=== PATIENT | female | born 2000 | race Caucasian/White ===

== ENCOUNTER → 2025-05-17 06:49 | Day surgery (SDC) | payer MEDICAID, SELFPAY ==
[2025-05-15 13:20] VITALS: BMI 31.0
--- NOTE | 2025-05-16 07:24 | EXP.HP ---
History of Present Illness *Admission Date: 05/17/25 *History of present illness: Mrs. Kwan is a 25-year-old female who is here for diagnostic colonoscopy. The patient is having left-sided abdominal pain intermittently. Her CAT scan at [facility] was unremarkable. She does have a positive ASCA IgG antibody (34) and her p-ANCA was normal. She has never had a colonoscopy. She had previously been diagnosed with IBS constipation. The examination is deemed medically necessary for diagnostic colonoscopy. The patient has been seen, interviewed and examined prior to the procedure by both myself and the anesthesia provider. [facility] Disclaimer: The information contained in this section may have been updated after the patient was seen, as this information can be updated by other users. Medical History Acid reflux Surgical History Hx of section Hx of dilation and curettage Hx of laparoscopy H/O plastic surgery Social History Smoking Status: Never smoker alcohol intake: never substance use type: denies use current occupational status: unemployed Travel in the last 8 weeks?: None Have you lived/traveled outside [place] in past 30 days?: No Contact w/someone who lives/traveled outside [place] past 30 days?: No Exposure to someone with infectious disease in past 14 days?: No Do you have a fever (greater than 100.4 F or 38 C)?: No Have you tested positive for COVID-19?: No Exposed to someone with COVID-19 in past 14 days?: No Do you have a sore throat?: No Do you have a cough?: No Do you have any weakness?: No Are you experiencing any nausea/vomitting?: No Do you have any diarrhea?: No Are you experiencing any unusual bleeding?: No Do you have any muscle aches/pain?: No Do you have any abdominal pain?: No Are you experiencing loss of taste or smell?: No Review of Systems Review of Systems Review of systems (narrative): Negative *Cardiovascular Comments: Negative *Gastrointestinal Comments: Negative *Genitourinary Comments: Negative *Musculoskeletal Comments: Negative *Neurologic Comments: Negative Meds Home Medications and Allergies New Prescriptions to Start Prescriptions: Allergies Allergy/AdvReac Type Severity Reaction Status Date / Time amoxicillin Allergy Mild Anaphylaxis Verified 05/17/25 07:23 cefdinir Allergy Mild Anaphylaxis Verified 05/17/25 07:23 famotidine (From Pepcid) AdvReac Palpitation Verified 05/17/25 07:23 s Exam Data for Last 24 hours I & O for Last 24 hours: Intake & Output 05/13/25 05/14/25 05/15/25 05/16/25 23:59 23:59 23:59 23:59 Weight 181 lb *Routine HEENT Exam Head: Present normocephalic Eye: Present EOMI and PERRL ENT: Present mucous membranes moist *Routine Neck Exam Neck: Present supple *Routine Respiratory Exam Respiratory: Present CTA bilaterally *Routine Cardiovascular Exam Cardiovascular: Present RRR *Routine Abdominal Exam Abdominal: Present soft and normoactive bowel sounds; Absent tenderness *Routine Rectal Exam Rectal:: deferred *Routine Genitalia Exam Genitalia:: deferred *Routine Extremities Exam Extremities: Absent cyanosis, clubbing or edema *Routine Skin Exam Skin: Present warm; Absent rash *Routine Neurological Exam Neurological: Present alert and oriented X3 Assessment and Plan *Assessment and plan (1) Left sided abdominal pain: Status: Acute Category: Medical Code(s): R10.9 - Unspecified abdominal pain (2) Elevated anti-Saccharomyces cerevisiae antibody: Status: Acute Category: Medical Code(s): R76.8 - Other specified abnormal immunological findings in serum (3) Blood in stool: Status: Acute Category: Medical Code(s): K92.1 - Melena (4) Irritable bowel syndrome with constipation: Status: Acute Category: Medical Code(s): K58.1 - Irritable bowel syndrome with constipation Plan A/P: 1. Left sided abdominal pain with positive ASCA IgG antibody and blood in stool is the preprocedural diagnosis. The patient will be anesthetized/sedated using MAC sedation. The patient has been seen and examined. Cardiac and lung assessment prior to the examination is stable. Proceed with planned diagnostic colonoscopy.
--- NOTE | 2025-05-17 07:03 | HMH.PROCNOTE ---
[facility] Procedure Note Date: 05/17/25 Time: 08:40 Procedure Note:: Colonoscopy Procedure Report: Colonoscopy with monopolar ablation/coagulation Endoscopist: Luke Haile II, MD Referring physician: Uriel Burns MD Date of Procedure: May 17, 2025 Equipment: Olympus [id number] adult colonoscope Sedation: MAC sedation Indication: Mrs. Kwan is a 25-year-old female who is here for diagnostic colonoscopy. The patient is having left-sided abdominal pain intermittently. Her CAT scan at [facility] was unremarkable. She does have a positive ASCA IgG antibody (34) and her p-ANCA was normal. She has never had a colonoscopy. She had previously been diagnosed with IBS constipation. The patient does have external hemorrhoids but occasionally has intermittent internal hemorrhoidal bleeding. She reports no family history of colon cancer but does have a family history of colon polyps. The examination is deemed medically necessary for diagnostic colonoscopy. Procedure: Prior to the procedure, a history and physical exam was performed, and patient's medications and allergies were reviewed. The risks, benefits and alternatives of the sedation and procedure were discussed with the patient. All questions were answered and informed consent was obtained. The patient was brought to the procedure room. Patient identification and proposed procedure were verified by the physician and the nurse. The patient was placed in a left lateral decubitus position and the scope was passed under direct vision. Throughout the procedure, the patient's blood pressure, pulse, and oxygen saturations were monitored continuously. The colonoscopy was accomplished without difficulty. The patient tolerated the procedure well. Findings: On digital rectal examination there was normal rectal tone. There were external hemorrhoidal tags and hemorrhoids. There was a healed posterior midline anal fissure. The colonoscope was introduced through the anal canal to the rectum and advanced to the cecum. The ileocecal valve and appendiceal orifice were identified. The scope was advanced a short distance into the ileum which appeared grossly normal. The scope was then withdrawn into the colon. The cecum, ascending, transverse, descending, sigmoid and rectum were grossly normal. There were no mucosal abnormalities identified. Upon retroflexion within the rectum there were 2 internal hemorrhoids. There was a hypertrophied anal papilla. 1 column of hemorrhoid was ablated/coagulated using monopolar ablation/coagulation. The preparation was excellent throughout with Ell[place] Preparation Score of 9. The cecal time was 12 minutes. Impression: 1. Normal colonoscopy with intubation of the terminal ileum 2. External hemorrhoids/grade 2 internal hemorrhoids and hypertrophied anal papilla?monopolar ablation/coagulation utilized for 1 column of internal hemorrhoid Plan: The patient does have constipation predominant IBS with visceral sensitivity. She does not have any evidence of Crohn's disease. I would recommend prucalopride and buspirone therapy and I we will electronically send this prescription to her pharmacy. I will have her follow-up in the office in 3 to 4 months.
[2025-05-17 07:23] VITALS: BP 121/70; PULSE 58; RESP 16; TEMP 36.1; O2SAT 97
[2025-05-17] MEDS: LACTATED RINGERS 1000ML 1,000 ML 50 ML IV (07:30)
[2025-05-17 07:36] LABS: Urine Pregnancy, HCG Qual. Negative (Negative)
[2025-05-17 08:40] VITALS: BP 98/59; PULSE 57; RESP 18; TEMP 36.1; O2SAT 100
== END | disposition home or self-care (01) ==
PROVIDERS: Visit Provider Internal Medicine Gastroenterology
PROC: 0DJD8ZZ Inspection of Lower Intestinal Tract, Via Natural or Artificial Opening Endoscopic (ICD-10-PCS; CPT 45378; principal; 2025-05-17 08:30)
DX: K64.1 Second degree hemorrhoids (principal); K64.4 Residual hemorrhoidal skin tags; K62.89 Other specified diseases of anus and rectum; K58.1 Irritable bowel syndrome with constipation; K92.1 Melena; Z88.8 Allergy status to other drugs, medicaments and biological substances; Z88.1 Allergy status to other antibiotic agents; Z88.0 Allergy status to penicillin
CPT/HCPCS: 45378; 46930; 81025; J7120